=== PATIENT | male | born 1965 | race Caucasian/White ===

== ENCOUNTER 2016-09-19 09:06 | Emergency (ER) | payer MEDICAID ==
[~2016-09-19] VITALS: Ht 180.3 cm; Wt 94.3 kg
[2016-09-19 10:13] LABS: Basophils # (auto) 0.1 uL; Basophils % (auto) 0.6 % (0.0-2.0); Eosinophils # (auto) 0.3 uL; Eosinophils % (auto) 3.5 % (0.0-7.0); Hematocrit 45.9 % (41.0-53.0); Hemoglobin 15.1 g/dL (13.5-17.5); Lymphocytes # (auto) 1.6 uL; Lymphocytes % (auto) 16.6 % (10.0-50.0); Mean Corpuscular Hemoglobin 28.1 pg (28.0-32.0); Mean Corpuscular Hgb Conc. 32.9 g/dL (32.0-36.0); Mean Corpuscular Volume 85.5 fL (80.0-100.0); Mean Platelet Volume 9.9 fL (7.4-10.4); Monocytes # (auto) 0.9 uL; Monocytes % (auto) 9.2 % (0.0-12.0); Neutrophils # (auto) 6.7 uL; Neutrophils % (auto) 70.1 % (37.0-80.0); Platelet Count (auto) 262 10^3/uL (140-450); White Blood Cell 9.6 10^3/uL (4.4-10.8)
[2016-09-19] MEDS ORDERED: SODIUM CHLORIDE 0.9% 1,000 ML IV ONE (10:15)
[2016-09-19 10:21] LABS: Albumin 4.1 g/dL (3.4-5.0); Alkaline Phosphatase 167 U/L (45-117); Anion Gap 9 (5-15); Aspartate Aminotransferase 25 U/L (15-37); Bilirubin, Total 0.4 mg/dL (0.2-1.0); Blood Urea Nitrogen 6 mg/dL (7-18); Calcium 8.7 mg/dL (8.5-10.1); Carbon Dioxide 26 mmol/L (21-32); Chloride 109 mmol/L (98-107); GFR African American 101 mL/min; GFR Non-African American 83 mL/min; Glucose 84 mg/dL (74-106); Sodium 144 mmol/L (136-145)
[2016-09-19 10:47] VITALS: BP 116/77
== END 2016-09-19 11:26 | disposition home or self-care (01) ==
LOC: ER 09:06
DX: J20.9 Acute bronchitis, unspecified (principal); F17.210 Nicotine dependence, cigarettes, uncomplicated
CPT/HCPCS: 36415; 71020; 80053; 83735; 84484; 85025; 93005; 94761; 96360; 99285; J7030

== ENCOUNTER 2017-02-07 06:50 | Emergency (ER) | payer MEDICAID ==
[~2017-02-07] VITALS: Ht 180.3 cm; Wt 90.7 kg
[2017-02-07 07:20] VITALS: BP 119/86
[2017-02-07] MEDS ORDERED: KETOROLAC TROMETH 60MG/2ML VIAL IM ONE (07:45)
[2017-02-07 07:53] LABS: Urine Bilirubin Negative (Negative); Urine Blood 3+ /uL (Negative); Urine Color PINK (Yellow); Urine Glucose TRACE mg/dL (Normal); Urine Ketone Negative (Negative); Urine Mucus FEW (None Seen); Urine Nitrite Negative (Negative); Urine RBC 481 /hpf (0 - 3); Urine Squamous Epithelial Cell FEW /hpf (<5); Urine Urobilinogen Normal (Negative); Urine pH 5.5 (5.0-8.0)
[2017-02-07 08:15] LABS: Basophils # (auto) 0.1 uL; Basophils % (auto) 0.9 % (0.0-2.0); CONDITION Y; Eosinophils # (auto) 0.1 uL; Eosinophils % (auto) 1.2 % (0.0-7.0); Hematocrit 44.7 % (41.0-53.0); Hemoglobin 14.9 g/dL (13.5-17.5); Lymphocytes # (auto) 1.8 uL; Lymphocytes % (auto) 20.6 % (10.0-50.0); Mean Corpuscular Hemoglobin 28.3 pg (28.0-32.0); Mean Corpuscular Hgb Conc. 33.3 g/dL (32.0-36.0); Mean Corpuscular Volume 84.9 fL (80.0-100.0); Mean Platelet Volume 9.1 fL (7.4-10.4); Monocytes # (auto) 0.5 uL; Neutrophils # (auto) 6.2 uL; Neutrophils % (auto) 71.3 % (37.0-80.0); Platelet Count (auto) 268 10^3/uL (140-450); Red Cell Distribution Width 14.9 % (11.6-16.0); White Blood Cell 8.7 10^3/uL (4.4-10.8)
[2017-02-07 08:45] LABS: BUN/Creatinine Ratio 8.7; Bilirubin, Total 0.4 mg/dL (0.2-1.0); Calcium 8.7 mg/dL (8.5-10.1); Potassium 3.8 mmol/L (3.5-5.1); Total Protein 7.6 g/dL (6.4-8.2)
== END 2017-02-07 09:00 | disposition home or self-care (01) ==
LOC: ER 06:50
DX: N20.0 Calculus of kidney (principal); M54.5 Low back pain
CPT/HCPCS: 36415; 74176; 80053; 81001; 85025; 96372; 99285; J1885

== ENCOUNTER 2020-05-03 09:11 | Emergency (ER) | payer MEDICAID ==
[~2020-05-03] VITALS: Ht 180.3 cm; Wt 83.9 kg
[2020-05-03 09:35] VITALS: BP 124/87
[2020-05-03] MEDS ORDERED: IBUPROFEN 800 MG TAB PO ONE (10:45)
== END 2020-05-03 10:59 | disposition home or self-care (01) ==
LOC: ER 09:11
DX: S93.401A Sprain of unspecified ligament of right ankle, initial encounter (principal); F17.210 Nicotine dependence, cigarettes, uncomplicated; W19.XXXA Unspecified fall, initial encounter; Y93.89 Activity, other specified; Y92.89 Other specified places as the place of occurrence of the external cause; Y99.8 Other external cause status
CPT/HCPCS: 73610

== ENCOUNTER 2022-12-07 09:53 | Emergency (ER) | payer MEDICAID ==
[~2022-12-07] VITALS: Ht 180.3 cm; Wt 92.9 kg
[2022-12-07] MEDS ORDERED: KETOROLAC TROMETH 60MG/2ML VIAL IM ONE (11:00)
[2022-12-07 11:34] VITALS: BP 126/82
[2022-12-07] MEDS ORDERED: IBUP-1456 PO (11:38)
[2022-12-07] MEDS ORDERED: PRED20TA2 PO (11:38)
== END 2022-12-07 11:48 | disposition home or self-care (01) ==
LOC: ER 09:53
DX: G89.29 Other chronic pain (principal); M54.59 Other low back pain; F17.210 Nicotine dependence, cigarettes, uncomplicated
CPT/HCPCS: 72100; 96372; 99283; J1885